=== PATIENT | male | born 1955 | race Caucasian/White ===

== ENCOUNTER → 2020-04-12 | Outpatient (CLI) | payer BC ==
--- NOTE | 2020-04-12 15:44 | EKG ---
[facility] [place] [address] ELECTROCARDIOGRAM REPORT Name: PATSY MOY Room #: REG CLI [facility].#: [id number] Admission: 04/12/20 Attend Phys: Pablito Parker MD Discharge: Date of : 55 Report #: [id number] THIS REPORT FOR: cc: Dave Gracia MD,Dave Acuna,Joe OSORIO [facility] ~ THIS REPORT FOR: //name// [facility] Test Date: 2020-04-12 Test Time: 15:07:21 Pat Name: PATSY MOY Department: Room: Gender: [place]: Victor Manuel ADAMSON : 1955 Requested By: Pablito Parker Order Number: [id number] MD: Joe Acuna Measurements Intervals [place] Rate: 50 P: 30 [place]: 187 QRS: -36 QRSD: 92 T: 32 QT: 461 QTc: 421 Interpretive Statements Sinus rhythm Inferior infarct, old No previous ECG available for comparison Electronically Signed On 04-12-2020 15:44:32 [employer]IGATION [employer] by Joe Acuna [email or web address] <ELECTRONICALLY SIGNED> By: Joe Acuna MD, FACC 04/12/20 1544 [id number] Joe Acuna MD, [facility] /EPI
[2020-04-12 16:28] LABS: ALBUMIN 3.8 g/dL (3.4-5.0); CALCIUM 8.9 mg/dL (8.5-10.1); CREATININE 1.2 mg/dL (0.7-1.3); TOTAL BILIRUBIN 0.8 mg/dL (0.2-1.0); TOTAL PROTEIN 6.7 g/dL (6.4-8.2)
[2020-04-12 16:39] LABS: HEMATOCRIT 44.9 % (42.0-52.0); HEMOGLOBIN 14.8 gm/dL (14.0-18.0); MCHC 32.9 g/dL (28.0-37.0); MCV 91.3 fL (80.0-100.0); RBC 4.92 mil/uL (4.50-6.00); RDW 13.6 % (10.5-14.5); WBC 6.4 thou/uL (4.0-11.0)
== END ==
LOC: CV 14:41
PROVIDERS: ATTEND Otolaryngology Plastic Surgery within the Head & Neck
DX: I72.8 Aneurysm of other specified arteries (principal)

== ENCOUNTER → 2020-05-02 | Outpatient (CLI) | payer BC | LOC: LAB 10:39 | PROVIDERS: ATTEND Anesthesiology | DX: Z01.812 Encounter for preprocedural laboratory examination (principal); Z20.828 Contact with and (suspected) exposure to other viral communicable diseases ==